=== PATIENT | female | born 1965 | race Caucasian/White ===

== ENCOUNTER → 2016-08-18 | Day surgery (SDC) | payer BC ==
[~2016-08-18] MED LIST: ALBUTEROL17 GM INH; ALLERGY RELIEF25 MG PO; ATORVASTATIN CA10 MG PO; LINZESS145 MCG PO; MELATONIN5 M1 PO; NEURONTIN800 MG; NITROSTAT0.4 MG SL; PERCOCET10 PO; PROPRANOLOL HC120 MG PO; PROTONIX PO; RANEXA500 MG PO; ROBAXIN500 MG PO
--- NOTE | ~2016-08-18 | OR ---
Unit #: [id number] #: [id number] Patient: VADIM WOLFE [id number] [address] [address] [id number] MR#: [id number] NAME: VADIM WOLFE ROOM: Date of Procedure: 08/18/2016 Admission Date: 08/18/2016 Surgeon: Agustin Abdullahi M.D. : 1965 Attending Physician: Agustin Abdullahi M.D. Referring Physician: Agustin Abdullahi M.D. Primary Care Physician: Vinod Wellington M.D. OPERATIVE REPORT PREOPERATIVE DIAGNOSES 1. Chronic arachnoiditis. 2. Post-laminectomy pain syndrome. 3. Chronic pain syndrome. POSTOPERATIVE DIAGNOSES 1. Chronic arachnoiditis. 2. Post-laminectomy pain syndrome. 3. Chronic pain syndrome. PROCEDURES PERFORMED 1. Implantation of [employer] SynchroMed II pump. 2. Implantation of Ascenda catheter. 3. Fluoroscopy. 4. Physician filling of pump. SURGICAL INDICATIONS AND RATIONALE Ms. Vadim Wolfe is a patient of mine, 51-year-old female, who has been having intractable low back pain for over 10 years, radiating down both lower extremities. The patient has obviously gone through conservative treatment, and she has also had a laminectomy and diskectomy done in her low back which may account for the significant pain that she has in her low back radiating down both lower extremities. The patient has had a successful epidural pain pump trial with morphine in which her pain was about 80% to 90% under control. The patient has had a cardiac and a psychological evaluation, both of which did not show any contraindications. I have gone through all the risks, benefits, and alternatives available and including the consent decree with the patient and all questions were answered to her satisfaction. I used a teach back method to make sure that the patient understood my explanations. The patient also had an education process with Jerrica Grijalva, [employer] patient access representative who also discussed the consent decree with the patient and the patient's questions were answered to her satisfaction. DESCRIPTION OF PROCEDURE After obtaining full informed consent and after discussion with the patient of possible complications including infection, bleeding, paralysis, mild headaches, , and other perioperative complications were discussed with the patient and consent was obtained in front of nurse Whitt. The patient was then taken back to the operating room, where a time-out was done in accordance to the joint commission guidelines where the patient's identity, procedure, and site of procedure were verified. Unit #: [id number] #: [id number] Patient: VADIM WOLFE The patient was then positioned in the prone position after general anesthesia was induced. All pressure points were padded in accordance to the anesthesiologist. The patient was then prepped and draped in the usual fashion. Then under fluoroscopic view, I was able to identify the interspace between L2 and L3. After the skin target sites were anesthetized, I made an incision using a #10-blade and made an incision measuring about 4 cm in length. With the help of the Bovie, I was able to undermine the subcutaneous tissue and create space for the Tuohy needle along with stylet. I also made an incision on the right side of her low back measuring 5.5 cm in length and I was able to use the Bovie to create a pocket. Both of these incisions were first copiously irrigated with irrigant and all bleeders were stopped. I then used a 17-gauge Tuohy needle to access the intrathecal space using fluoroscopy. I was able to obtain CSF at first pass, which was clear. I then navigated an Ascenda catheter through the Tuohy needle to reach the upper border of T7 under live fluoroscopic view. The Tuohy needle along with the stylet were removed and then I used a special anchoring device to anchor this catheter to the interspinous ligament. This anchor was then further fortified with 3-0 Prolene sutures. I then used a tunneling device to tunnel this catheter into the pocket. The catheter was cut to size and I used a special adapter to connect this catheter to a second piece of catheter, which was directly connected to the pump. Once this was done, I aspirated the pump through the side port using a 24-gauge Law needle. I was able to get clear CSF. I then placed a TyRx pouch into the pump pocket and then placed the pump into the pocket snugly. I anchored the pump to the underlying tissue using 3-0 Prolene sutures using the 4 anchors in the bottom of the pump. The 2 incisions were then carefully inspected and closed using 3-0 Vicryl sutures interruptedly. This was done in 2 layers and the skin was approximated with jeannette. The patient's pump was filled with morphine at a concentration of 5 mg/mL, and the patient is able to have 0.4 mg of morphine a day. The patient also has the ability to activate her patient rn iv therapy receiving 0.03 mg up to t.i.d. Therefore, maximal usage the patient would be getting 0.488 mg per day. The patient was then brought back to the recovery room for neurological monitoring. PLAN OF CARE The patient had an uneventful recovery period and was discharged home neurologically intact with plans to return to my office in 7 days to have her jeannette removed. The patient and her family acknowledges understanding of all the risks, benefits, and alternatives available and would like to proceed. The patient's pump catheter number is [id number] and the [employer] SynchroMed II pump serial #[id number]. Dictated by... Vance Haas/keegan TD: 08/19/2016 03:06 JOB #: [id number] Unit #: [id number] #: [id number] Patient: VADIM WOLFE OPERATIVE REPORT Page 1 of 1 X Agustin Abdullahi MD PROCEDURE OPERATIVE NOTE
--- NOTE | ~2016-08-18 | EKG ---
PATIENT: VADIM SMART UNIT #: [id number] Ventricular Rate: 70 BPM Atrial Rate: 70 BPM P-R Interval: 178 ms QRS Duration: 82 ms Q-T Interval: 384 ms QTC Calculation(Bezet): 414 ms P [place]: 33 degrees Calculated R [place]: 18 degrees Calculated T [place]: 48 degrees Diagnosis Line: Normal sinus rhythm Diagnosis Line: Normal ECG Diagnosis Line: No previous ECGs available Diagnosis Line: Confirmed by GAEL LADD MD ([id number]) on Diagnosis Line: 08/19/2016 9:02:33 AM INTERPRETING MD: WILBERTO CRAFT
[2016-08-18 06:59] LABS: CALCIUM SERUM 9.6 mg/dL (8.4-10.2); GLOM FILT RATE Estimated 65.2 mL/min (>60); POTASSIUM 3.8 mmol/L (3.5-5.1)
== END | disposition home or self-care (01) ==
LOC: CSUR 08-17 07:30
PROVIDERS: Specialist
PROC: 0JH70VZ Insertion of Infusion Pump into Back Subcutaneous Tissue and Fascia, Open Approach (ICD-10-PCS; principal; 2016-08-18 07:30)
DX: G03.1 Chronic meningitis (principal); M96.1 Postlaminectomy syndrome, not elsewhere classified; G89.4 Chronic pain syndrome; I25.2 Old myocardial infarction; I10 Essential (primary) hypertension; K21.9 Gastro-esophageal reflux disease without esophagitis; J44.9 Chronic obstructive pulmonary disease, unspecified; I25.10 Atherosclerotic heart disease of native coronary artery without angina pectoris; F17.200 Nicotine dependence, unspecified, uncomplicated; Z79.899 Other long term (current) drug therapy; Z90.711 Acquired absence of uterus with remaining cervical stump; Z98.890 Other specified postprocedural states; Z98.1 Arthrodesis status; Z88.5 Allergy status to narcotic agent; Z88.8 Allergy status to other drugs, medicaments and biological substances; Z88.0 Allergy status to penicillin
CPT/HCPCS: 77003; 80048; 93005; C1772; J0330; J2250; J2274; J2370; J2405; J2710; J3010; J3370